=== PATIENT | male | born 1985 | race African-American/Black ===

== ENCOUNTER 2018-09-30 20:00 | Emergency (ER) | payer MEDICAID ==
[~2018-09-30] VITALS: Ht 175.3 cm; Wt 78.0 kg
[2018-09-30 20:23] VITALS: BP 160/90
== END 2018-09-30 21:55 | disposition left against medical advice (07) ==
LOC: ER 20:00
DX: F19.10 Other psychoactive substance abuse, uncomplicated (principal)
CPT/HCPCS: 99283

== ENCOUNTER 2018-09-30 22:05 | Emergency (ER) | payer MEDICAID, OTHER | END 2018-10-01 00:30 | disposition left against medical advice (07) | LOC: ER 22:05 | DX: Z53.21 Procedure and treatment not carried out due to patient leaving prior to being seen by health care provider (principal) ==

== ENCOUNTER 2019-01-22 09:54 | Emergency (ER) | payer MEDICAID ==
[~2019-01-22] VITALS: Ht 193 cm; Wt 99.0 kg
[2019-01-22 10:30] VITALS: BP 119/69
== END 2019-01-22 11:21 | disposition home or self-care (01) ==
LOC: ER 10:07
DX: S01.81XD Laceration without foreign body of other part of head, subsequent encounter (principal); X58.XXXD Exposure to other specified factors, subsequent encounter
CPT/HCPCS: 99281